=== PATIENT | male | born 1960 | race Caucasian/White ===

== ENCOUNTER → 2025-03-14 | Outpatient (CLI) | payer MEDICARE, MEDICAID, SELFPAY ==
--- NOTE | 2025-03-14 13:48 | XR_ITS ---
EXAMINATION: Lumbar spine 3 views TECHNIQUE: AP lateral: Lateral lower lumbar spine 3 views Date and time: March 14, 2025 1434 hours INDICATION: Low back pain several years. FINDINGS: Lumbar dextroscoliosis 10 degrees No lumbar fracture. Moderate to advanced degenerative disc disease lower 3 lumbar levels, most severe at L4-L5, L5-S1 with prominent spondylosis IMPRESSION: Moderate to advanced degenerative disc disease lower 3 lumbar levels, most severe at L4-L5, L5-S1
== END | disposition home or self-care (01) ==
LOC: CDIM 13:35
PROVIDERS: PCP Physician Assistant; Referring Provider Physician Assistant; Visit Provider Physician Assistant
DX: M51.360 Other intervertebral disc degeneration, lumbar region with discogenic back pain only (principal); M51.370 Other intervertebral disc degeneration, lumbosacral region with discogenic back pain only
CPT/HCPCS: 72100